=== PATIENT | female | born 1955 | race Caucasian/White ===

== ENCOUNTER → 2018-07-16 | Outpatient (REF) | payer OTHER ==
[2018-07-18 14:12] LABS: HPV HYBRID CAPTURE II Negative (Negative)
== END ==
LOC: M SFHCWAGY 11:14
PROVIDERS: ATTEND Nurse Practitioner Women's Health
DX: Z12.4 Encounter for screening for malignant neoplasm of cervix (principal)
CPT/HCPCS: 87624; G0123

== ENCOUNTER → 2018-07-16 | Outpatient (CLI) | payer OTHER ==
--- NOTE | 2018-07-16 15:26 | REPMRS ---
Patient History The patient states she had a clinical breast exam in 07/2018. Patient is postmenopausal. Family history of breast cancer at age 48 in sister, breast cancer at age 60 in paternal grandmother, prostate cancer at age 70 in father, breast cancer at age 30 in paternal aunt, prostate cancer at age 60 in paternal grandfather. No Hormone Replacement Therapy Digital Woman Screen Mammo: July 16, 2018 - Exam #: [id number] Bilateral CC and MLO view(s) were taken. Technologist: Hailey Tripathi, Technologist Prior study comparison: January 31, 2015, digital woman screen mammo performed at [facility]. March 19, 2013, digital woman screen mammo performed at [facility]. September 19, 2011, digital woman screen mammo performed at [facility]. FINDINGS: There are scattered fibroglandular densities. There has been no change in the appearance of the mammogram from the prior studies. There is a mild amount of scattered fibroglandular density which is fairly symmetric. There is no interval development of dominant mass, architectural distortion, or clustered microcalcification suggestive of malignancy. 3-D tomosynthesis shows no additional findings. Assessment: BI-RADS/ACR category 1 mammogram. Negative Mammogram. Recommendation Breast MRI of both breasts in 6 months. Routine screening mammogram of both breasts in 1 year (for women over age 40). This patient's Lifetime Breast Cancer RIsk is estimated at 23.4 %. Annual screening Breast MRI scanniing is recommended for patient's whose lifetime risk assessment is over 20%. This mammogram was interpreted with the aid of an FDA-approved computer-aided dectection system. Electronically Signed By: Enrique Howell MD 07/16/18 [id number]
--- NOTE | 2018-07-18 13:49 | DEXA ---
AP SPINE L1 - L4 1.055 -1.1 0.3 LT FEMUR TOTAL 1.076 0.5 1.6 LT NECK 0.934 -0.7 0.6 RT FEMUR TOTAL 1.054 0.4 1.4 RT NECK 0.893 -1.0 0.3 TOTAL BODY TOTAL OTHER COMMENTS: Normal bone densitometry of the left hip. There is low bone density of the spine. There is low bone density of the right hip. The density of the spine has decreased 3.0% since the initial exam on 01/29/2005. The spine density has increased 4.6% since the most recent exam on 02/14/2015. The density of the left hip has decreased 6.1% since the initial exam on 01/29/2005. The density of the left hip has decreased 1.1% since the most recent exam on 02/14/2015. The density of the right hip has decreased 2.6% since the initial exam on 01/29/2005. The density of the right hip has decreased 2.0% since the most recent exam on 02/14/2015 FOLLOW-UP: Recommendation for the next bone density exam: 2 years. FRIEDA
== END ==
LOC: M WHC 10:57
PROVIDERS: ATTEND Nurse Practitioner Women's Health
DX: Z12.31 Encounter for screening mammogram for malignant neoplasm of breast (principal); M85.88 Other specified disorders of bone density and structure, other site; Z78.0 Asymptomatic menopausal state; Z80.3 Family history of malignant neoplasm of breast

== ENCOUNTER → 2019-01-26 | Outpatient (CLI) | payer OTHER | LOC: M RAD 15:18 | PROVIDERS: ATTEND Nurse Practitioner Women's Health | DX: Z53.9 Procedure and treatment not carried out, unspecified reason (principal) ==

== ENCOUNTER → 2019-11-30 | Outpatient (CLI) | payer OTHER ==
--- NOTE | 2019-11-30 17:39 | REPMRS ---
Patient History The patient states she had a clinical breast exam in November 2019.Family history of breast cancer at age 48 in sister, breast cancer at age 60 in paternal grandmother, prostate cancer at age 70 in father, breast cancer at age 30 in paternal aunt, prostate cancer at age 60 in paternal grandfather. No Hormone Replacement Therapy Digital Woman Screen Mammo: November 30, 2019 - Exam #: [id number] Bilateral CC and MLO view(s) were taken. Technologist: Ania Kohler, Technologist Prior study comparison: July 16, 2018, bilateral digital woman screen mammo performed at [facility]. January 31, 2015, digital woman screen mammo performed at [facility]. March 19, 2013, digital woman screen mammo performed at [facility]. FINDINGS: The breast tissue is almost entirely fat. The Volpara volumetric breast density category is: A. There is a loop recorder projecting over the meial left breast. There has been no change in the appearance of the mammogram from the prior studies. There is no interval development of dominant mass, architectural distortion, or grouped microcalcification typical of malignancy. 3-D tomosynthesis shows no additional findings. Assessment: BI-RADS/ACR category 2 mammogram. Benign Findings. Recommendation Breast MRI of both breasts in 6 months. Routine screening mammogram of both breasts in 1 year (for women over age 40). This patient's Lifetime Breast Cancer RIsk is estimated at 21.7 %. Annual screening Breast MRI scanniing is recommended for patient's whose lifetime risk assessment is over 20%. This mammogram was interpreted with the aid of an FDA-approved computer-aided dectection system. Electronically Signed By: Enrique Howell MD 11/30/19 0824
== END ==
LOC: M WHC 09:50
PROVIDERS: ATTEND Nurse Practitioner Women's Health
DX: Z12.31 Encounter for screening mammogram for malignant neoplasm of breast (principal)

== ENCOUNTER → 2020-03-14 | Outpatient (CLI) | payer SELFPAY | LOC: M LABSMTC 16:31 | PROVIDERS: ATTEND Pediatrics | DX: Z20.828 Contact with and (suspected) exposure to other viral communicable diseases (principal) ==

== ENCOUNTER → 2021-05-25 | Outpatient (CLI) | payer OTHER | LOC: M WHC 10:14 | PROVIDERS: ATTEND Advanced Practice Midwife | DX: N64.4 Mastodynia (principal); N61.0 Mastitis without abscess ==

== ENCOUNTER → 2021-05-25 | Outpatient (REF) | payer OTHER | LOC: M SFHCWAGY 17:03 | PROVIDERS: ATTEND Advanced Practice Midwife | DX: Z12.4 Encounter for screening for malignant neoplasm of cervix (principal) ==

== ENCOUNTER → 2021-08-09 | Outpatient (CLI) | payer OTHER ==
[~2021-08-09] MED LIST: BIOT50004 PO; ECOT81TA5 PO; FLON1SPR NARES; HYDR200T3 PO; LEVO50TA5 PO; LEVOTAB10 PO; MYRB50TA PO; ROSU10TA6 PO; VITA500C24 PO
== END ==
LOC: M ONCR 13:48
PROVIDERS: ATTEND General Practice
DX: C50.912 Malignant neoplasm of unspecified site of left female breast (principal); Z80.3 Family history of malignant neoplasm of breast; Z80.49 Family history of malignant neoplasm of other genital organs; Z87.891 Personal history of nicotine dependence; Z79.82 Long term (current) use of aspirin

== ENCOUNTER → 2021-09-05 | Outpatient (RCR) | payer OTHER | LOC: M ONCR 08-18 08:25 | PROVIDERS: ATTEND General Practice | DX: D05.12 Intraductal carcinoma in situ of left breast (principal) ==

== ENCOUNTER 2021-09-19 09:42 | Outpatient (RCR) | payer OTHER | END 2021-10-05 | LOC: M ONCR 09:42 | PROVIDERS: ATTEND General Practice | DX: D05.12 Intraductal carcinoma in situ of left breast (principal) ==

== ENCOUNTER → 2022-01-11 | Outpatient (CLI) | payer OTHER | LOC: M WHC 13:59 | PROVIDERS: ATTEND Advanced Practice Midwife | DX: Z13.820 Encounter for screening for osteoporosis (principal); M85.89 Other specified disorders of bone density and structure, multiple sites ==

== ENCOUNTER → 2022-03-15 | Outpatient (REF) | payer OTHER | LOC: M SFHCWAGY 13:21 | PROVIDERS: ATTEND Obstetrics & Gynecology | DX: N84.1 Polyp of cervix uteri (principal) ==

== ENCOUNTER → 2022-03-20 | Outpatient (CLI) | payer OTHER | LOC: M ONCR 09:37 | PROVIDERS: ATTEND General Practice | DX: D05.12 Intraductal carcinoma in situ of left breast (principal); Z80.3 Family history of malignant neoplasm of breast; Z79.810 Long term (current) use of selective estrogen receptor modulators (SERMs); Z79.82 Long term (current) use of aspirin; Z79.899 Other long term (current) drug therapy; Z87.891 Personal history of nicotine dependence; Z92.3 Personal history of irradiation ==

== ENCOUNTER → 2022-12-17 | Outpatient (CLI) | payer OTHER ==
[~2022-12-17] MED LIST changes: -HYDR200T3 PO; +HYDR200T46 PO
== END ==
LOC: M WUC 09:15
PROVIDERS: ATTEND Physician Assistant
DX: E03.9 Hypothyroidism, unspecified (principal); E11.9 Type 2 diabetes mellitus without complications

== ENCOUNTER → 2023-02-06 | Outpatient (REF) | payer OTHER | LOC: M PLALAB 09:51 | PROVIDERS: ATTEND Advanced Practice Midwife | DX: Z01.419 Encounter for gynecological examination (general) (routine) without abnormal findings (principal) | CPT/HCPCS: 87624; G0123 ==

== ENCOUNTER → 2023-03-20 | Outpatient (CLI) | payer OTHER ==
[~2023-03-20] MED LIST changes: -BIOT50004 PO; +BIOT5CAP8 PO
== END ==
LOC: M ONCR 09:19
PROVIDERS: ATTEND General Practice
DX: D05.12 Intraductal carcinoma in situ of left breast (principal); Z71.2 Person consulting for explanation of examination or test findings; Z79.51 Long term (current) use of inhaled steroids; Z79.810 Long term (current) use of selective estrogen receptor modulators (SERMs); Z79.82 Long term (current) use of aspirin; Z79.899 Other long term (current) drug therapy; Z92.3 Personal history of irradiation